=== PATIENT | female | born 1985 | race Caucasian/White ===

== ENCOUNTER 2018-05-29 10:00 | Inpatient (IN) ==
[2018-05-29] MEDS ORDERED: Naloxone 0.4 MG/ML INJ IVP PRN (10:39)
[2018-05-29] MEDS ORDERED: Famotidine 20 MG/2 ML VIAL IVP PRN (10:39)
[2018-05-29] MEDS ORDERED: miSOPROStol 25 MCG TABLET PO PRN (10:39)
[2018-05-29] MEDS ORDERED: Ondansetron 4 MG/2 ML VIAL IVP PRN (10:39)
[2018-05-29] MEDS ORDERED: Metoclopramide 10 MG/2 ML VIAL IVP PRN (10:39)
[2018-05-29] MEDS ORDERED: D5% in 0.45% NACL 1,000 ML IVC SCH (10:45)
[2018-05-29] MEDS ORDERED: Ringers Solution, Lactated 1,000 ML ONE ×4 (11:03→23:48)
[2018-05-29 11:25] LABS: Basophils % 0.2 %; Eosinophils # 0.1 K/mcL (0.0-0.6); Eosinophils % 1.1 %; Hemoglobin 11.8 g/dL (11.5-15.4); Immature Granulocytes % 0.4 % (0-4); Lymphocytes # 2.3 K/mcL (0.6-4.6); Mean Corpuscular HGB Conc 35.8 g/dL (31.6-35.5); Mean Corpuscular Hemoglobin 31.4 pg (28.0-33.3); Mean Corpuscular Volume 87.8 fL (83.0-100.0); Mean Platelet Volume 11.3 fL (9.4-12.4); Monocytes # 0.6 K/mcL (0.0-1.3); Monocytes % 5.9 %; Neutrophils # 6.4 K/mcL (1.6-8.9); Platelet Count 165 K/mcL (140-400); Red Blood Count 3.76 M/mcL (3.82-4.97); Red Cell Distribution Width 12.5 % (11.5-14.5); Segmented Neutrophils % 68.4 %
[2018-05-29 11:34] LABS: Amphetamine Screen,Urine Negative ng/mL (Cutoff=1000); Barbiturate Screen,Urine Negative ng/mL (Cutoff=200); Benzodiazepines Screen,Urine Negative ng/mL (Cutoff=200); Cannabinoid Screen,Urine Negative ng/mL (Cutoff = 50); Cocaine Screen,Urine Negative ng/mL (Cutoff= 300); Opiate Screen,Urine Negative ng/mL (Cutoff=300); Phencyclidine Screen,Urine Negative ng/mL (Cutoff=25)
--- NOTE | 2018-05-29 12:37 | OB Labor Progress Note ---
Date of Encounter: 05/29/18 Time of Encounter: 12:34 Labor Progress Note - Subjective Subjective: The patient is starting to feel contractions but reports are not severely uncomfortable yet. - Vital Signs Vital Signs: Afebrile, vital signs stable - Cervix Cervix: 4/70/-1, vertex and well applied - Heart Tones Heart Tones: 125 baseline CAT 1 - [place]: Contractions irregular and difficult to trace, patient received Cytotec 50 MCG' s at 1125 today - Interventions Interventions: 39 week IUP for induction of labor - Plan Plan: Amniotomy, clear fluid seen with small amount. IUPC placed to determine whether augmentation will be needed. Anticipate vaginal delivery
--- NOTE | 2018-05-29 12:43 | OB/GYN History & Physical ---
Date of Encounter: 05/29/18 Time of Encounter: 12:33 Assessment and Plan (1) Rh negative state in antepartum period Current visit: Yes Status: Acute (2) Tobacco use affecting in third trimester, antepartum Current visit: Yes Status: Acute Pt reports 1/2 PPD use (3) renal anomaly Current visit: Yes Status: Acute kidney enlargement and keyhole appearance of bladder noted on US. (4) Marijuana use in remission Current visit: Yes Status: Acute (5) 39 weeks gestation of Current visit: No Status: Acute Admit for IOL. Cytotec given PO. Epidural when requested. Anticipate . (6) Narcotic addiction Current visit: No Status: Chronic (7) Obesity complicating , third trimester Current visit: No Status: Chronic History of Present Illness Chief complaint: IOL HPI: Ms. Garcia is a 32 year old female presenting at 39 weeks gestation for IOL. This has been complicated by opioid dependence, smoking, anemia, Rh negative blood type, obesity, marijuana use, and kidney enlargement with keyhole appearance of bladder on ultrasound. Pt was seen by MFM for evaluation of kidneys and they recommend close follow-up with [facility] [place] and possible US after delivery. The pt is on subutex for her opioid dependence and it appears she has been compliant with group requirements. Blood type A negative rubella immune Serologies negative GBS negative Past Med Surg Social Fam HX - Past Medical History Medical history: no medical history Additional medical history: vag delivery at term 2005, spontaneous AB x2 (last 2011). Hepatitis B Core IgM: reactive (indicates recent acute hepatitis B infection) Psychiatric history: no psych history - Past Surgical History Surgical History: other Additional surgical history: foot surgery at age 11, cyst removed from tailbone at age 28, T&A - Social History Smoking Status: Current every day smoker Packs per day: 0.5 Smokeless Tobacco Status: No Alcohol use: none Drug use: marijuana, prescription drug abuse - Family History Mother Adopted: No Family Member Ethnicity: Non- Living Status: Age at : 50 Cause of : Cardiac arrest following CABG s/p NV Hx Family Cardiac Disorders: Yes ([place], CABG, Cardiac arrest, HTN) Hx Family Respiratory Disorders: No Hx Family Cancer: No Hx Family GI Disorders: No Hx Family Genitourinary Disorders: No Hx Family Endocrine Disorder: Yes (DM) Hx Family Musculoskeletal Disorders: No Hx Family Neuromuscular Disorders: No Hx Family Neurologic Disorders: No Hx Family HEENT Disorders: No Hx Family Autoimmune Disorders: No Hx Family Reproductive Disorders: No Hx Family Psychosocial Disorders: No Hx Family Medical Disorders: Yes (multiple hernia operations) Obstetrical History - Pregnancies : 5 Para: 2 Term: 2 : 0 Ab's: 2 Livin Medications and Allergies Buprenorphine HCl [Subutex] 8 mg SL BID 06/03/16 [History] Folic Acid [FA-8] 1 tab PO DAILY 06/03/16 [History] Pnv95/Iron Fum/Folic Acid [ [place]] 06/03/16 [History] Ibuprofen [Motrin] 600 mg PO TID PRN #60 tablet 06/20/16 [Rx] 3 Allergy/AdvReac Type Severity Reaction Status Date / Time Amoxicillin Allergy Mild Hives Verified 06/18/16 05:53 Review of System OB All systems PM: reviewed and no additional remarkable complaints except as stated Exam - Constitutional Constitutional: well developed, well nourished, no acute distress - HEENT HEENT: Mucus Membranes Moist - Lungs Respiratory exam: CTAB - Cardiovascular Cardiovascular exam: RRR, +S1, +S2 - Abdomen Abdomen: Present: gravid, non tender - Extremities Extremities exam: pedal edema (L>R, no erythema or warmth, pt reports always has more swelling on left) - Vulva Vulva: bilateral: normal - Vagina Vagina: Present: normal moisture - Cervix Dilation: 3 - Anus/Rectum Anus/Rectum: Present: normal perianal skin Results Result Diagrams: 05/29/18 11:01 Abnormal lab results RBC 3.76 M/mcL (3.82-4.97) L 05/29/18 11:01 Hct 33.0 % (35.3-44.9) L 05/29/18 11:01 MCHC 35.8 g/dL (31.6-35.5) H 05/29/18 11:01 All other labs normal. - VTE Reasons for not Prescribing Prophylaxis: Treatment not Indicated - Low risk for VTE
[2018-05-29] MEDS ORDERED: Oxytocin 20 units/ LR 1000 mL 20 UNIT/1,000 ML BAG IVC SCH (15:45)
--- NOTE | 2018-05-29 15:47 | Anesthesia Evaluation PreOp ---
Date of Encounter: 05/29/18 Time of Encounter: 15:44 - Past History Planned Operation: ALPHONSE Cardiac History: Denies any Significant Hx Pulmonary History: Smoker (1/2 ppd), Pack/yr (10) Other Medical History: Hepatic (hep B last preg), GERD Anesthesia History: No Prior Anesthetic Complications, Past Anesthesia (t&A, cyst coccyx, foot), Problems (none) : Yes Test: Positive Alcohol Use: none Drug use: marijuana, prescription drug abuse Medications and Allergies Buprenorphine HCl [Subutex] 8 mg SL BID 06/03/16 [History] 3 Allergy/AdvReac Type Severity Reaction Status Date / Time Amoxicillin Allergy Mild Hives Verified 06/18/16 05:53 - Meds/Allergy Pre-op Review Medications Reviewed: Yes Allergies Reviewed: Yes Beta Blockers on Current Med List: No Anesthesia Results - Labs 05/29/18 11:01 Anesthesia Exam 126/80 88 fht 143 Height: 5'8" Weight: 105 k NPO (# of Hours): 2 Pain Scale: 3 Pain Scale Used: Numeric (1 - 10) - HEENT Pupil (Motor): Pupils equal Teeth: Edentulous Oral Opening: Greater than 3 - HEATING AND COOLING TECHNICIAN LOC: Oriented HEATING AND COOLING TECHNICIAN Motor: Normal RUE, Normal LUE, Normal RLE, Normal LLE, Normal Face HEATING AND COOLING TECHNICIAN Sensory: Normal: RUE, LUE, RLE, LLE, Face - Cardiac Rhythm: Regular Murmur: None - Pulmonary Breath Sounds: bilateral Clear Respiratory Effort: Symmetrical Anesthesia Assess/Plan ASA Score: 2 Modified Meherrin Scale for Level of Consciousness: Cooperative, oriented, and tranquil Anesthetic Plan: MAC Autologous Blood: No Monitoring Plan: Standard Monitors Recovery Plan: Other (risks discussed questions answered, consented)
[2018-05-29] MEDS ORDERED: *HR* FentaNYL (PF) 100 MCG/2 ML VIAL EP ONE (15:48)
[2018-05-29] MEDS ORDERED: *HR* Ropivacaine/PF 0.2% 20 ML VIAL EP ONE (15:48)
[2018-05-29] MEDS ORDERED: Epidural Premix (fent/bupiv) 110 ML EP SCH (16:00)
[2018-05-29] MEDS ORDERED: *HR* FentaNYL (PF) 100 MCG/2 ML VIAL ONE (16:49)
[2018-05-29] MEDS ORDERED: *HR* Ropivacaine/PF 0.2% 20 ML VIAL ONE (16:49)
[2018-05-29] MEDS ORDERED: Lidocaine -MPF 2% 5 ML VIAL ONE (16:49)
--- NOTE | 2018-05-29 17:18 | Anesthesia Procedures ---
Date of Encounter: 05/29/18 Time of Encounter: 17:16 Procedures: Anesthesia - Epidural/Spinal Patient ID/Chart reviewed: Yes Patient examined: Yes OB Eval: Gestational age: 39 OB Eval: : 5 OB Eval: Hx Para: 2 OB Eval: Dilated at (cm): 5 OB Eval: Contractions: Non-stressed pattern Consent Obtained: Yes Supplemental Oxygen: None/Room Air Site Prep: Aseptic Technique, Sterile prep and drape, 0.5% Chlorhexidine/Alcohol Patient position: upright Local Anesthetic: Lidocaine 1% Amount of Local Anesthetic used: 3 Touhy Needle Gauge: 18 Touhy Needle Depth (cm): 10 Catheter Depth at Skin (cm): 20 Test Dose (1.5% Lido + Epi): Volume given (mls): 3 Test Dose Result: Negative Loading Dose: Fentanyl (mcg): 100 Loading Dose: Other: rop 0.2% 10 cc Loading Dose Administered: Thru Touhy Needle Infusion Med: 0.125% Bupivacaine w/ 2 mcg/ml Fentanyl Infusion Rate (mls/hr): 15 (pcea 5 cc q30") Catheter Secured in Place: Tegaderm Interspace Used: L3-L4 Loss of Resistance (MARK): Yes Blood: No CSF: No Paresthesia: No Procedure: aseptic, tolerated well, VSS, effective Vitals + FHT's: 108/78 66 16 fht 142
--- NOTE | 2018-05-29 20:59 | OB Labor Progress Note ---
Date of Encounter: 05/29/18 Time of Encounter: 18:55 Labor Progress Note - Subjective Subjective: Pt comfortable without complaints. - Cervix Cervix: 4-5/80/-1 - Heart Tones Heart Tones: Category II, late and variable decelerations that are improved with repositioning - [place]: IUPC has stopped tracing and is found to be sitting at vaginal introitus - Interventions Interventions: New IUPC placed - Plan Plan: Continue close monitoring. Anticipate . Dr. Cottrell notified of tracing and SVE.
--- NOTE | 2018-05-30 05:29 | OB/GYN Procedure Note ---
Delivery - Delivery Date: 05/30/18 Provider: Ev Cottrell Intrapartum events: none Delivery induction: misoprostol Delivery augmentation: rupture of membranes, pitocin Delivery monitor: external FHT, external uterine, internal FHT Anesthesia: epidural Quantitated Blood Loss: 100 - Infant (s) Infant A Infant Delivery Date: 05/30/18 Infant Delivery Time: 05:06 Presentation: vertex Position: MELONIE Route of delivery: Gender: Male Viability: Viable Pounds: 7 Ounces: 1 Weight Gram: 3.19 kg at 1 minute: 8 at 5 mins: 9 Shoulder Dystocia: not encountered Specimens collected: cord blood Placenta: spontaneous Cord: nuchal cord, 3 umbilical vessels, nuchal reduced - Repair Episiotomy: none Laceration Description: Periurethral (Left) - Complications Delivery complications: none Delivery comments: The patient was complete and pushing with epidural anesthesia with a spontaneous vaginal delivery in the MELONIE position of a vigorous male infant weighing 7 lbs. 1 oz. with Apgars of 8 at 1 minute and 9 at 5 minutes. Infant was placed on the maternal abdomen. The cord was clamped and cut after pulsations ceased. Cord blood obtained. The placenta was delivered spontaneous and intact. Superficial left periurethral laceration was hemostatic and not repaired. Estimated blood loss 100 mL, complications none. Both mother and infant recovering in stable condition in the LDR - Disposition Mom disposition: stable in LDR disposition: stable in LDR
[2018-05-30] MEDS ORDERED: *HR* Buprenorphine HCl 8 MG TAB.SUBL SL SCH ×2 (05:59→06:15)
[2018-05-30] MEDS ORDERED: Oxytocin 20 units/ LR 1000 mL 20 UNIT/1,000 ML BAG IVC SCH (08:41)
[2018-05-30] MEDS ORDERED: Measles/Mumps/Rubella Vacc 0.5 ML VIAL SQ PRN (08:41)
[2018-05-30] MEDS ORDERED: Benzocaine/Menthol 56 GM AEROSOL SPRAY TP PRN (08:41)
[2018-05-30] MEDS ORDERED: Acetaminophen 325 MG TABLET PO PRN (08:41)
[2018-05-30] MEDS: Ibuprofen 600 MG TABLET PO SCH ×3 (10:39→19:35)
[2018-05-30] MEDS: Prenatal Vit/FA 1 EACH TABLET PO SCH (10:39)
[2018-05-30] MEDS: *HR* Buprenorphine HCl 8 MG TAB.SUBL SL SCH ×2 (15:07→20:02)
[2018-05-31 07:59] VITALS: BP 102/69
--- NOTE | 2018-05-31 08:24 | Discharge Summary ---
Date of Encounter: 05/31/18 Time of Encounter: 08:15 - Discharge Medications Home Medications: Buprenorphine HCl [Subutex] 8 mg SL BID 06/03/16 [History] Allergies/Adverse Reactions: 3 Allergy/AdvReac Type Severity Reaction Status Date / Time Amoxicillin Allergy Mild Hives Verified 06/18/16 05:53 Data Procedures and tests throughout hospitalization: Laboratory Tests 05/29/18 05/29/18 05/30/18 11:01 11:01 05:37 WBC 9.4 RBC 3.76 L Hgb 11.8 Hct 33.0 L MCV 87.8 MCH 31.4 MCHC 35.8 H RDW 12.5 Plt Count 165 MPV 11.3 Immature Gran % 0.4 Seg Neutrophils % 68.4 Lymphocytes % 24.0 Monocytes % 5.9 Eosinophils % 1.1 Basophils % 0.2 Neutrophils # 6.4 Lymphocytes # 2.3 Monocytes # 0.6 Eosinophils # 0.1 Basophils # 0.0 Urine Opiates Screen Negative Ur Barbiturates Screen Negative Ur Phencyclidine Scrn Negative Ur Amphetamines Screen Negative U Benzodiazepines Scrn Negative Urine Cocaine Screen Negative U Marijuana (THC) Screen Negative Ur Drug Screen Interp See Below Baby's Blood Type B RH NEGATIVE Mother's Blood Type A RH NEGATIVE Rhogam Indicated NO Labs on day of discharge: Labs from last 24 hours 05/30/18 05:37 Baby's Blood Type B RH NEGATIVE Mother's Blood Type A RH NEGATIVE Rhogam Indicated NO Date of admission: 05/29/18 10:03 Primary care physician: PCP NONE Consults: 05/30/18 08:41 Consult to Engineer Exhauster [CONS] Routine Comment: Vaginal delivery, consult needed Consult to Brass Sorter [CONS] Routine Reason for SW Consult: subutex group, out of meds - Patient Status Disposition: Home, Self-Care Condition: Good - Discharge Instructions Follow Up With: NONE,PCP [Primary Care Provider] - - Diet and Activity Activity: increase activity as tolerated Diet: advance to your usual diet Hospital Course Reason for admission: induction of labor Delivery: Episiotomy: none Laceration: other (Left-sided paraurethral ) complications: none Discharge diagnosis: IUP at term delivered [place] baby: male Hospital course: Patient is alert and oriented, pleasant and conversional, speech is fluid and she answers questions appropriately. The patient denies headache, vision change , chest/breast pain, shortness of breath, fever or chills. Patient to be discharged with 5-day hospital "guesting" hold. Plan of care discussed with the patients with precautions noted. Patient is in agreement with this plan. Time Attestation: Total time spent providing and/or coordinating discharge services: Time Spent: Less than 30 minutes Exam - Constitutional Vitals: Temp Pulse Resp BP Pulse Ox 97.9 F 60 20 102/69 97 05/31/18 07:58 05/31/18 07:58 05/31/18 07:58 05/31/18 07:58 05/31/18 07:58 General appearance IM: cooperative, A&O X 3, pleasant, no acute distress, answers questions appropriately - Respiratory Respiratory exam: Present: CTAB. Absent: accessory muscle use, decreased breath sounds, prolonged expiratory phase, rales, respiratory distress, rhonchi , stridor, wheezes, tachypnea - Cardiovascular Cardiovascular exam IM: Present: RRR, +S1, +S2. Absent: clicks, diastolic murmur, gallop, JVD, rubs, +S3, +S4, systolic murmur - GI/Abdominal GI/Abdominal exam IM: soft, tenderness (Mild tenderness noted in midline abdomen ) - Neurological Exam Neurological exam: alert, oriented X3
[2018-05-31] MEDS: *HR* Buprenorphine HCl 8 MG TAB.SUBL SL SCH (08:44)
[2018-05-31] MEDS: Prenatal Vit/FA 1 EACH TABLET PO SCH (08:44)
== END 2018-05-31 09:36 | disposition home or self-care (01) | DRG 560 ==
LOC: 1NENULAB 10:03 → 1NENUOBS 05-30 08:38
PROVIDERS: ADMIT Obstetrics & Gynecology; ATTEND Obstetrics & Gynecology